=== PATIENT | male | born 1980 | race Caucasian/White ===

== ENCOUNTER 2019-08-16 11:41 | Inpatient (IN) | payer MEDICAID ==
[~2019-08-16] VITALS: Ht 170.2 cm; Wt 89.6 kg
--- NOTE | 2019-08-16 13:56 | NUR ---
REPORT TO NEMESIO JUAREZ FOR BREAK COVERAGE
[2019-08-16 14:59] LABS: BASOPHIL % 0.3 % (0-2); RED CELL DISTRIBUTION WIDTH 13.4 % (11.5-14.5)
[2019-08-16 15:20] LABS: CALCIUM 7.7 mg/dL (8.5-10.1); CARBON DIOXIDE 22.6 mmol/L (21-32); TOTAL PROTEIN, SERUM 8.2 g/dL (6.4-8.2)
--- NOTE | 2019-08-16 15:25 | NUR ---
RESTING QUIETLY AT THIS TIME. DENIES COMPLAINTS. WILL CONTINUE FOR CHANGES
[2019-08-16 15:29] LABS: ALBUMIN 2.2 g/dL (3.4-5.0); PLATELET COUNT 96 x10^3mcL (130-400)
[2019-08-16 15:30] LABS: CREATININE SERUM 10.2 mg/dL (0.7-1.3)
--- NOTE | 2019-08-16 18:11 | NUR ---
RECEIVED PT FROM ED VIA [facility], CAME IN DUE TO FEVER X2 DAYS. AAOX4. DENIES HEADACHE/DIZZINESS. ABLE TO FOLLOW COMMANDS. NO SOB NOTED, LUNG SOUNDS CTA. O2 SAT=98%, RA. DENIES CHEST PAIN/PRESSURE, SR ON THE MONITOR. DENIES ABDOMINAL DISCOMFORT. VOIDS. DENIES DYSURUIA. IV SITE PATENT AND INTACT. SIDE RAILS UPX2. CALL LIGHT ON REACH. PRIMARY NURSE HAYDEE AT BEDSIDE FOR CONTINUITY OF CARE
[2019-08-16 18:14] LABS: T3 TOTAL 0.48 ng/mL
[2019-08-16 18:15] LABS: MAGNESIUM 2.6 mg/dL (1.8-2.4); PHOSPHOROUS 8.1 mg/dL (2.5-4.9)
[2019-08-16 18:22] VITALS: BP 117/78
[2019-08-16 18:24] VITALS: Ht 170.2 cm; Wt 89.6 kg
[2019-08-16 18:26] LABS: FREE T4 1.23 ng/dL (0.76-1.46); T4(THYROXINE) 8.5 ug/dL (4.7-13.3)
[2019-08-16 18:35] LABS: UA SPECIFIC GRAVITY 1.015 (1.005-1.035); microscopic required? YES; urine erythrocyte 3+ (NEGATIVE)
[2019-08-16 18:48] LABS: AMPHETAMINE QUAL UR NONE DETECTED (See below)
--- NOTE | 2019-08-16 18:53 | NUR ---
PATIENT FAMILY NOW IN ROOM. DR GODINEZ IN TO SPEAK WITH PATIENT AND FAMILY. STATES HE WILL CONSULT NEPHROLOGY FOR PATIENT. PATIENT AND FAMILY AGREE AND VERBALIZE UNDERSTANDING. WILL ENDORSE TO ONCOMING NURSE, CALL LIGHT IN REACH.
--- NOTE | 2019-08-16 19:32 | NUR ---
RECEIVED PT FROM DAY SHIFT RN. PT AAOX4 DENIES REYEZ/DIZZINESS. BREATHING EVEN AND UNLABORED ON RA WITH NO SOB NOTED. TELE #20 NSR HR 74 PER MONITOR. PT DENIES CHEST PAIN/PRESSURE. ABD SOFT/DIST, ACTIVE BOWEL SOUNDS. DENIES ABD PAIN/N/V. IV RH PATENT, INFUSING WELL. NO SIGNS OF ACUTE DISTRESS NOTED. FAMILY AT BEDSIDE. WILL CONTINUE TO MONITOR.
[2019-08-16 19:38] LABS: CHOLESTEROL 213 mg/dL (<200); CHOLESTEROL/HDL RATIO 23.7; HDL CHOLESTEROL 9 mg/dL (40-60); TRIGLYCERIDES 694 mg/dL (<150)
[2019-08-16 19:43] VITALS: BP 120/65
--- NOTE | 2019-08-16 20:26 | NUR ---
PT STEPPED OUT OF UNIT TO CT, ACCOMPANY BY ACCOUNTS RECEIVABLE COORDINATOR. NO DISTTRESS NOTED.
--- NOTE | 2019-08-16 20:44 | NUR ---
PT BACK IN ROOM FROM CT, DENIES ANY PAIN. NO SIGNS OF DISTRESS NOTED.
--- NOTE | 2019-08-17 01:00 | NUR ---
ROUNDS MADE. PT RESTING. BREATHING EVEN AND UNLABORED, ON RA WITH NO SOB NOTED. CALL BUTTON WITHIN REACH. SAFETY PRECAUTIONS IN PLACE. WILL CONTINUE TO MONITOR.
[2019-08-17 04:37] VITALS: BP 116/68
--- NOTE | 2019-08-17 05:22 | NUR ---
PT SLEPT ON AND OFF THROUGHOUT THE NIGHT WITH NO SIGNS OF DISTRESS NOTED. IV PATENT, INFUSING WELL WITH NO SIGNS OF INFILTRATION. PT AMBULATORY WITH BRP. PT DENIES ANY PAIN. NO SIGNS OF ACUTE DISTRESS NOTED. CALL BUTTON WITHIN REACH. SAFETY PRECAUTIONS IN PLACE. WILL CONTINUE TO MONITOTR AND ENDORSE CARE TO DAY SHIFT RN, ALL QUESTIONS ADDRESSED.
[2019-08-17 06:38] LABS: CALCIUM 6.8 mg/dL (8.5-10.1); CARBON DIOXIDE 16.6 mmol/L (21-32); MAGNESIUM 2.4 mg/dL (1.8-2.4); PHOSPHOROUS 8.6 mg/dL (2.5-4.9); POTASSIUM SERUM 3.4 mmol/L (3.5-5.1)
[2019-08-17 06:52] LABS: CREATININE SERUM 10.7 mg/dL (0.7-1.3)
[2019-08-17 07:04] LABS: BASOPHIL % 0.1 % (0-2); RED CELL DISTRIBUTION WIDTH 13.5 % (11.5-14.5)
[2019-08-17 07:29] LABS: PLATELET COUNT 91 x10^3mcL (130-400)
--- NOTE | 2019-08-17 07:40 | NUR ---
US AT BEDSIDE. PT DENIES ANY PAIN. NO SIGNS OF DISTRESS NOTED. ENDORSED CARE TO DAY SHIFT RN, ALL QUESTIONS ADDRESSED.
--- NOTE | 2019-08-17 07:54 | NUR ---
RECEIVED PATIENT FROM NEMESIO WOO. PATIENT CURRENTLY HAVING US TAKEN. NO COMPLAINTS AT THIS TIME. SPOKE WITH PATIENT ABOUT PLAN OF CARE TODAY AND WILL WAIT FOR DR GODINEZ TO COME SPEAK WITH PATIENT. DR JOSÉ ARRIVED LAST NIGHT TO SPEAK WITH PATIENT WELL. CALL LIGHT IN REACH AT THIS TIME.
[2019-08-17 08:31] VITALS: BP 127/81
--- NOTE | 2019-08-17 10:06 | NUR ---
DR COOPER AND DR GODINEZ IN TO SPEAK WITH PATIENT. STATES THAT THEY WILL STILL NEED NEPHROLOGY TO COME EVAL PATIENT. DR JOSÉ ALREADY IN LAST NIGHT AT 2300. EXPLAINED TO FAMILY AND ABOUT PLAN OF CARE. ALL QUESTIONS ADDRESSED AT THIS TIME. CALL LIGHT IN REACH.
[2019-08-17 12:42] VITALS: BP 119/79
[2019-08-17 16:26] VITALS: BP 122/80
--- NOTE | 2019-08-17 17:06 | NUR ---
PATIENT IN BED AT THIS TIME, WATCHING TELEVISION. NO COMPLAINTS AT THIS TIME. WILL CONTINUE IV HYDRATION AND MONITOR FOR ABDOMINAL AND FLANK PAIN. CALL LIGHT IN REACH.
--- NOTE | 2019-08-17 19:08 | NUR ---
PATIENT SEATED IN BED, WATCHING TV. NO COMPLAINTS AT THIS TIME. ENDORSED TO NEMESIO WOO AND UPDATED TO TODAYS EVENTS. CALL LIGHT IN REACH.
--- NOTE | 2019-08-17 19:30 | NUR ---
RECEIVED PT FROM DAY SHIFT RN. PT AAOX4 DENIES REYEZ/DIZZINESS. BREATHING EVEN AND UNLABORED ON RA WITH NO SOB NOTED. TELE #20 NSR, PER MONITOR. PT DENIES CHEST PAIN/PRESSURE. ABD SOFT/DIST, ACTIVE BOWEL SOUNDS. DENIES ABD PAIN/N/V. IV RH PATENT, INFUSING WELL. NO SIGNS OF ACUTE DISTRESS NOTED. WILL CONTINUE TO MONITOR.
[2019-08-17 20:43] VITALS: BP 115/76
--- NOTE | 2019-08-18 02:14 | NUR ---
PT RESTING. BREATHING EVEN AND UNLABORED ON RA WITH NO SOB NOTED. IV PATENT, INFSUING WELL. NO SIGNS OF DISTRESS NOTED. CALL BUTTON WITHIN REACH. WILL CONTINUE TO MONITOR.
[2019-08-18 05:40] VITALS: BP 115/77
[2019-08-18 07:04] LABS: BASOPHIL % 0.1 % (0-2); RED CELL DISTRIBUTION WIDTH 13.3 % (11.5-14.5)
[2019-08-18 07:19] LABS: CALCIUM 6.7 mg/dL (8.5-10.1); CARBON DIOXIDE 14.4 mmol/L (21-32); MAGNESIUM 2.3 mg/dL (1.8-2.4); PHOSPHOROUS 8.6 mg/dL (2.5-4.9); POTASSIUM SERUM 3.7 mmol/L (3.5-5.1)
[2019-08-18 07:30] LABS: PLATELET COUNT 96 x10^3mcL (130-400)
[2019-08-18 07:34] LABS: CREATININE SERUM 10.4 mg/dL (0.7-1.3)
--- NOTE | 2019-08-18 07:55 | NUR ---
PT SLEPT MOST OF THE NIGHT WITH NO SIGNS OF DISTRESS NOTED. IV PATENT, INFUSING WELL. PT AMB WITH BRP. PT DENIES ANY PAIN. CALL BUTTON WITHIN REACH. ENDORSED CARE TO DAY SHIFT RN, ALL QUESTIONS ADDRESSED.
--- NOTE | 2019-08-18 08:00 | NUR ---
REEIVED PATIENT A/A/OX4; JAPANESE SPEECH. TELE#20; SR; HR = 84. DENIED ANY PAIN NOW. NO RESP DISTRESS ON RA. C/O POOR APPETITE. ABD ROUND/SOFT. HAD BM THIS AM. NO N/V. IVHL'D PER ORDER. NO EDEMA NOTED. CALL LIGHT IN REACH.
[2019-08-18 08:37] VITALS: BP 122/79
[2019-08-18 12:26] VITALS: BP 134/84
--- NOTE | 2019-08-18 12:42 | NUR ---
DR. NGUYEN CAME TO SEE PATIENT.
--- NOTE | 2019-08-18 13:15 | NUR ---
PPD SKIN TEST TO LEFT FOREARM.
--- NOTE | 2019-08-18 15:00 | NUR ---
WENT TO OR.
[2019-08-18 18:00] VITALS: BP 120/80
--- NOTE | 2019-08-18 18:05 | NUR ---
RECEIVED PATIENT FROM OR AFTER TUNNELED CATH PLACEMENT TO [facility]. PATIENT A/A/OX4; DENIED PAIN. SUTURE W/ BIO-PAD AND TRANSPARENT DRSG TO RT CHEST WALL INTACT. V/S = 97.2-80-17-120/80; O2 SAT 97% ON RA. AT BED SIDE.
--- NOTE | 2019-08-18 19:00 | NUR ---
HEMODIALYSIS CONSENT SIGNED.
--- NOTE | 2019-08-18 19:30 | NUR ---
RECEIVED PT RESTING IN BED, NO ACUTE DISTRESS NOTED. PT S/P TUNNELED CATH INSERTION FOR HD TO THE RT UPPER CHEST, DSG CDI. AOX4, DENIES REYEZ/DIZZINESS. TELE #20 SR W/ PEAKED T WAVE, DENIES CP. PULSES PALPABLE BILAT, DENEIS NUMBNESS/TINGLING IN FEET. RESP EVEN AND UNLABORED ON RA, DENIES SOB. ABD SOFT, ROUND, DENIES ABD PAIN. PT VOIDS FREELY, DENIES DYSURIA. AMBULATORY. SKIN INTACT OTHER THAN NEW TUNELED CATH TO RT UPPER CHEST, NO REDNESS, SWELLING OR PAIN NOTED. IV SITE TO THE RT HAND, SALINE LOCKED AT THIS TIME, ALL COMFORT AND SAFETY MEASURES PROVIDED FOR, CALL LIGTH WITHIN REACH, BED IN LOWEST POSITION, WILL CONTINUE TO MONITOR.
[2019-08-18 21:32] VITALS: BP 120/79
--- NOTE | 2019-08-18 23:45 | NUR ---
HD NURSE FINISHED WITH DIALYSIS, NO FLUID REMOVED, ONLY BALANCING OF ELECTROLYTES. PT TOLERATED HD WELL, DSG TO RT UPPER TUNNELED CATH REMAINS PATENT, NO REDNESS, SWELLING OR PAIN NOTED. PT RESTING WITH EYES CLOSED, CALL LIGHT WITHIN REACH, BED IN LOWEST POSITION, WILL CONTINUE TO MONITOR.
--- NOTE | 2019-08-19 05:05 | NUR ---
PT RESTED IN INTERVALS DURING SHIFT, NO ACUTE CHANGES OCCURRING OVERNIGHT. PT BLOOD SUGAR REMAINS STABLE OVERNIGHT, NO INSULIN COVERAGE NEEDED. PT TOLERATED FIRST HD WELL, NO FLUID REMOVED, ONLY BALANCE OF ELECTROLYTES. DSG TO RT UPPER CHEST TUNNELED CATH REMAINS CDI, NO REDNESS, SWELLING OR PAIN NOTED. PT TOLERATING ANTIBIOTICS WELL. ALL COMFORT AND SAFETY MEASURES PROVIDED FOR, CALL LIGHT WITHIN REACH, BED IN LOWEST POSITION, WILL CONTINUE TO MONITOR.
[2019-08-19 06:06] VITALS: BP 128/81
[2019-08-19 06:52] LABS: RED CELL DISTRIBUTION WIDTH 13.3 % (11.5-14.5)
[2019-08-19 07:05] LABS: CALCIUM 7.6 mg/dL (8.5-10.1); CARBON DIOXIDE 21.3 mmol/L (21-32); PHOSPHOROUS 6.4 mg/dL (2.5-4.9)
[2019-08-19 07:12] LABS: CREATININE SERUM 7.4 mg/dL (0.7-1.3)
--- NOTE | 2019-08-19 07:20 | NUR ---
RECEIVED PT. IN BED A/A/O X3. NO SOB, NO N/V NOTED. PT. DENIES ANY PAIN AT THIS TIME. IV SITE NOTED TO R HAND. TUNNELED HEMODIALYSIS CATH. NOTED TO R CHEST. BED IN LOW POS., CALL LIGHT WITHIN REACH. SIDE RAILS UP X3.
[2019-08-19 07:29] LABS: BASOPHIL % 0 % (0-2); PLATELET COUNT 122 x10^3mcL (130-400)
[2019-08-19 09:00] VITALS: BP 105/64
[2019-08-19 09:35] LABS: POTASSIUM SERUM 2.9 mmol/L (3.5-5.1)
[2019-08-19 10:10] LABS: COMPLEMENT C3 123 mg/dL (82-167); COMPLEMENT C4 38 mg/dL (14-44)
[2019-08-19 11:45] VITALS: BP 110/75
--- NOTE | 2019-08-19 13:36 | NUR ---
HEMODIALYSIS NURSE AT BEDSIDE TO PREPARE PT. FOR HEMODIALYSIS.
[2019-08-19 16:28] VITALS: BP 134/84
--- NOTE | 2019-08-19 17:00 | NUR ---
HEMODIALYSIS COMPLETED PER HD NURSE. NO FLUID REMOVED PER HD NURSE.
--- NOTE | 2019-08-19 17:12 | NUR ---
CALLED AND REPORTED URINE CULTURE RESULTS TO THE NURSE PRACTITIONER MARILU MAC. MARILU WAS MADE AWARE THAT PT.'S URINE CULTURE SHOWS E. COLI MDRO IN URINE. NO FURTHER ORDER RECEIVED AT THIS TIME. PT. IS PLACED ON CONTACT ISOLATION.
--- NOTE | 2019-08-19 19:25 | NUR ---
RECEIVED PT IN BED AWAKE, ALERT,ORIENTED X4. PT'S AT BEDSIDE. PT HAS NO SOB ON ROOM AIR. HE HAS NO C/O PAIN AT THIS TIME. W/ HL TO RT HAND INTACT. HD CATH TO RT CHEST INTACT. CALL LIGHT W/IN REACH.
[2019-08-19 20:51] VITALS: BP 131/84
--- NOTE | 2019-08-20 02:00 | NUR ---
PT APPEARS TO BE SLEEPING COMFORTABLY. NO S/S OF DISTRESS.
--- NOTE | 2019-08-20 05:19 | NUR ---
PT SLEPT THROUGH THE NIGHT. HE HAD NO C/O PAIN. NO SOB. PT VOIDING WELL. ALL NEEDS ATTENDED TO. DUE MEDS GIVEN. CONTACT ISOLATION MAINTAINED.
[2019-08-20 05:56] VITALS: BP 137/71
[2019-08-20 06:50] LABS: BASOPHIL % 0.2 % (0-2); PLATELET COUNT 187 x10^3mcL (130-400); RED CELL DISTRIBUTION WIDTH 13.4 % (11.5-14.5)
--- NOTE | 2019-08-20 07:10 | NUR ---
SEEN AOX4, NOT IN DISTRESS, TELE 20 NSR, PALPABLE PUSLSES, NO EDEMA, REGULAR RATE AND RHYTHM, S1 AND S2 HEARD, CTA ON BLF, NORMOACTIVE BS, LAST BM 08/20/19, VOID WITH NO DYSURIA, HD CATH AT R CHEST , NO WEAKNESS, AMBULATORY, SKIN DRY AND INTACT, NO PAIN AT THIS TIME, IV INFUSING AT KVO TO RH. NO REDNESS OR INFILTRATION. CALL LIGHT WITHIN REACH. BED AT LOWEST POSITION.
[2019-08-20 07:17] VITALS: BP 124/85
[2019-08-20 07:30] LABS: CALCIUM 8.3 mg/dL (8.5-10.1); PHOSPHOROUS 5.1 mg/dL (2.5-4.9); POTASSIUM SERUM 3.6 mmol/L (3.5-5.1)
[2019-08-20 07:36] LABS: CREATININE SERUM 4.8 mg/dL (0.7-1.3)
--- NOTE | 2019-08-20 08:57 | NUR ---
SEEN AOX4,NOT IN DISTRESS, PO MEDICATIONS GIVEN. MG 1.7. MGSO4 IVPB INFUSING WELL AT 25CC/HR AT RH. CALL LIGHT WITHIN REACH. BED AT LOWEST POSITION.
--- NOTE | 2019-08-20 11:34 | NUR ---
SEEN AOX4, NOT IN DISTRESS, NO ABD PAIN, NO N/V, NO DIZZINESS, NO WEAKNESS, ACCUCHECK DONE WITH CBG 132, NO INSULIN REQUIRED, PATIENT'S PHOSPHORUS 5.1. PHOSLO PO GIVEN. CALL LIGHT WITHIN REACH. BED AT LOWEST POSITION.
[2019-08-20 11:36] VITALS: BP 135/89
--- NOTE | 2019-08-20 11:49 | NUR ---
Initial Nutrition Assessment: 208T/B ADEBAYO JOL[place] IA HR Dx: acute renal failure, hypokalemia PMHx: pt denied PSHx: pt denied Labs: BG 118H, BUN 55H, CREAT 4.8H, P 5.1H, TG 694H, CHOL 213, MG 1.7L, WBC 13.3H Meds: Ambien, Colace, D 50%, Humulin, phoslo, protonix, zofran Diet: clear liquid PO intake since admission: (08/19) 100% all meals, (08/17) 100% all meals Ht: 170.18 cm (67") Wt: 89.6 kg (197#) BMI: 30.9 kg/m2 Bed scale: 197# IBW: 148# (67 kg) %IBW: 133 UBW: 197# Age: 38/M Food Allergies: NKFA Skin: dry and intact Mario: 20 Edema: none GI: Last BM: 08/19 Per H&P, Pt is a 38yoM with no significant PMH who presented to the ED c/o gradual-onset abdominal pain that radiates to bilateral flanks x3 days. RD Note (08/20): Patient was alert and oriented with at bedside. Patient is only Mongolian speaking but speaks Polish. Patient said he drank almost all of his liquid diet that he received for breakfast this morning and denies any N/V/D/C at this time. FNS received consult for 'malnutrition on 08/18. Per progress note (08/19), pt was scheduled for HD yesterday. Problem with: N/V/D/C: none Problems with: Chewing: Swallowing: none Current appetite: good Recent wt change: none %wt change: n/a Vitamin/Supplement use: none Special diet at home: Regular Physical activity: walking Nutrition education given: PO was encouraged Food-drug interactions: none Education given: n/a Estimated Nutritional Needs Based on adjusted body weight (73 kg) Energy: 8025-8936 kcal/day (25-30 kcal/kg for maintenance) Protein: 58-73 g/day (0.8-1.0 g/kg for acute renal failure) Fluid: 9136-6512 mL/day (1 mL/kcal) Nutrition Diagnosis: 1. Altered nutrition related lab values related to acute renal failure as evidenced by BUN 55H, CREAT4.8H Intervention 1. Recommend progressing to Renal full liquid diet when medically appropriate/ tolerated. Monitor/Evaluate Goal: PO intake at least 75% of estimated needs Monitor: PO intake, Labs, GI function F/U in 3-5 days as moderate risk 08/23-
--- NOTE | 2019-08-20 11:49 | NUR ---
1. Recommend progressing to Renal full liquid diet when medically appropriate/ tolerated.
--- NOTE | 2019-08-20 13:43 | NUR ---
CALLED AND SPOKE TO FLY(HD NURSE) AND SCHEDULED PT FOR HD TODAY PER DR.MINNA ANSARI'S ORDER. MARY HERR ASSIGNED TO THIS PT MADE AWARE OF ABOVE.
--- NOTE | 2019-08-20 16:37 | NUR ---
SEEN AOX4, NOT IN DISTRESS, NO SUBJECTIVE COMPLAINTS OF PAIN. PHOSLO GIVEN . CALL LIGHT WITHIN REACH. BED AT LOWEST POSITION.
[2019-08-20 16:43] VITALS: BP 131/87
--- NOTE | 2019-08-20 17:24 | NUR ---
SEEN PATIENT AOX4, NOT IN DISTRESS, NO ABDOMINAL PAIN , NO FLANK PAIN , ABLE TO VOID WITH NO DYSURIA, NO HEMATURIA, NO PYURIA, LAST BM 08/20/19, IV INTACT AND PATENT, NO REDNESS OR INFILTRATION. CALL LIGHT WITHIN REACH. BED AT LOWEST POSITION.
--- NOTE | 2019-08-20 19:05 | NUR ---
RECEIVED PT AWAKE ALERT AND VERBALLY RESPONSIVE IN [place].DENIES CHESTPAIN AT THIS TIME.BP 148/89 MMHG,HR 71.ONGOING DIALYSIS AT THIS TIME.WILL CONTINUE TO MONITOR.
--- NOTE | 2019-08-21 04:39 | NUR ---
PT SLEPT WELL ALL NIGHT.NO ASE NOTED FROM ROCEPHIN IV ATB.VOIDED TO 950 ML YELLOW COLORED URINE.ON CONTACT ISOALTION FOR MDRO E COLI URINE.GOODHANDWASHING TECHNIQUE OBSERVED.WILL CONTINUE TO MONITOR.
[2019-08-21 05:37] VITALS: BP 125/82
[2019-08-21 06:47] LABS: BASOPHIL % 0.1 % (0-2); PLATELET COUNT 227 x10^3mcL (130-400); RED CELL DISTRIBUTION WIDTH 13.4 % (11.5-14.5)
[2019-08-21 07:10] LABS: CALCIUM 8.1 mg/dL (8.5-10.1); CARBON DIOXIDE 28.9 mmol/L (21-32); CREATININE SERUM 3.1 mg/dL (0.7-1.3); POTASSIUM SERUM 3.4 mmol/L (3.5-5.1)
--- NOTE | 2019-08-21 07:45 | NUR ---
SEEN AOX4, NOT IN DISTRESS, NO SUBJECTIVE COMPLAINTS OF PAIN, TELE 19 , NSR , CTA ON BLF, REGULAR RATE AND RHYTHM, S1 AND S2 HEARD, PALPABLE PULSES, NO EDEMA, + BS, VOIDS WITH NO DYSURIA, NO WEAKNESS, SKIN INTACT, IV INTACT AND PATENT, SL TO [place] PICC LINE. CALL LIGHT WITHIN REACH. BED AT LOWEST POSITION.
--- NOTE | 2019-08-21 08:19 | NUR ---
TOOL SALVAGE WORKER MARILU SEEN PATIENT. QUESTIONS ADDRESSED. PO MEDICATIONS GIVEN PRESCRIBED. IV CHECKED FOR PATENCY AND PROTONIX IVP GIVEN . IV FLUSHED WITH NS. CALL LIGHT WITHIN REACH. BED AT LOWEST POSITION.
[2019-08-21 08:44] VITALS: BP 125/84
--- NOTE | 2019-08-21 09:09 | NUR ---
K 3.4. KLOR CON 40MEQ GIVEN PO. MG 1.7. MAGNESIUM OXIDE 400MG GIVEN PO.
--- NOTE | 2019-08-21 09:24 | NUR ---
CONTACTED FLY KELLER. PATIENT SCHEDULED FOR HD 08/22/19 . FLY KELLER MADE AWARE AND CONFIRMED TOMORROW'S SCHEDULE.
--- NOTE | 2019-08-21 11:11 | NUR ---
SEEN AOX4, NOT IN DISTRESS, NO SUBJECTIVE COMPLAINTS, ACCUCHECK DONE WITH CBG OF 129. NO INSULIN REQUIRED. PHOSLO PO GIVEN . CALL LIGHT WITHIN REACH. BED AT LOWEST POSITION
[2019-08-21 13:40] VITALS: BP 115/75
[2019-08-21 16:56] VITALS: BP 119/70
--- NOTE | 2019-08-21 17:05 | NUR ---
PATIENT HAS NO SUBJECTIVE COMPLAINTS OF PAIN. NO N/V, NO WEAKNESS. CALL LIGHT WITHIN REACH. BED AT LOWEST POSITION.
[2019-08-21 19:05] VITALS: BP 121/79
--- NOTE | 2019-08-21 19:05 | NUR ---
RECEIVED PT AWAKE ALERT AND VERBALLY RESPONSIVE IN [place].DENIES CHESTPAIN AT THIS TIME.BP 121/79 MMHG,HR 70.TUNNELED CATH TO R CHEST WITH DRESSING CDI.DENIES ABDOMINAL PAIN.NO N/V NOTED.ON CONTACT ISOALTION FOR MDRO E COLI IN URINE.WILL OBSERVE GOODHANDWASHING TECHNIQUE.WILL CONTINUE TO MONITOR.
--- NOTE | 2019-08-22 04:36 | NUR ---
PT SLEPT WELL ALL NIGHT.NO ASE NOTED FROM ROCEPHIN IV ATB.DENIES ABDOMINAL PAIN.TOLERATED CLEAR LIQUID DIET.REMAINS ON CONTACT ISOALTION FOR MDRO E COLI URINE.GOODHANDWASHING TECHNIQUE OBSERVED.ALL NEEDS MET.WILL CONTINUE TO MONITOR.
[2019-08-22 05:47] VITALS: BP 128/86
[2019-08-22 06:42] LABS: CALCIUM 8.4 mg/dL (8.5-10.1); CARBON DIOXIDE 26.7 mmol/L (21-32); CREATININE SERUM 3.1 mg/dL (0.7-1.3); POTASSIUM SERUM 3.8 mmol/L (3.5-5.1)
[2019-08-22 06:49] LABS: BASOPHIL % 0.3 % (0-2); PLATELET COUNT 286 x10^3mcL (130-400); RED CELL DISTRIBUTION WIDTH 13.2 % (11.5-14.5)
--- NOTE | 2019-08-22 08:00 | NUR ---
RECEIVED PATIENT ALERT AND ORIENTED TIMES FOUR. PATIENT WITH TUNNEL CATH IN PLACE AND PATIENT AND BEEN ON ROCEPHIN AND NO ADVERSE REACTION NOTED. PATIENT HAS BEEN WITH VITALS AT THIS TIME AT 97.4,73, 20, 128/86, 100% ON ROOMAIR. PATIENTIS BASICALLY WAITING FOR A DIALYSIS CHAIR FOR PATIENT TO BE DISCHARGED. HE IS FOR DIALYSIS TODAY AND NOTED LABS ARE THE BUN AT 25.0, CREATININE AT 3.1,AND THE WBC AT 13.5 ANDNOTED PATIENT HAS UTI. PATIENT HAS NOTED TO HAVE ECOLI MDRO OF THE URINE. PATIENT NO PREVIOUS HISTORY BEFORE COMING TO [place] AND HAS A NEED FOR DIABETIC MONITORING AND HAS BEEN NOTED TO HAVE DIVERTICULOSIS AND A SMALL HERNIA TO THE UMBILICAL AREA WELL. PATIENT HAS BEEN SEEN BY SEVERAL DOCTORS INCLUDING DR ANSARI FOR NEPHROLOGY. HE DENIES PAIN AND HAS BEEN AMBUALTORY AND STILL HAS A URINE OUTPUT THAT IS ADEQUATE AT THIS TIME.
[2019-08-22 08:27] VITALS: BP 118/78
[2019-08-22] MEDS ORDERED: CIPRO500 MG PO (08:55)
[2019-08-22] MEDS ORDERED: COL100 PO (08:56)
[2019-08-22] MEDS ORDERED: PHOS PO (08:56)
--- NOTE | 2019-08-22 10:25 | NUR ---
PATIENT IS FOR DIALYSIS AND DIALYSIS NURSE AT BEDSIDE.
--- NOTE | 2019-08-22 12:17 | NUR ---
BLOOD SUGAR AT 125 AND NO COVERAGE INDICATED. PATIENTA HAS BEEN ON DIALYSIS AND TOLERATED WELL THE CAME IN AND WANTS TO LEAVE [facility] SHE WORKS TODAY. ADVISED BY THE HE WILL NOT HAVE A RIDE IF HE IS NOT DISCHARGED IN TIME.
[2019-08-22 12:44] VITALS: BP 115/75
[2019-08-22 12:47] VITALS: BP 115/75
[2019-08-22 16:27] VITALS: BP 113/74
--- NOTE | 2019-08-22 16:43 | NUR ---
GAVE ALL PAPERWORK POST THE DIALYSIS AND NO FLUIDS REMOVED AT THIS TIME. IV AND TELE REMOVED INDICATED AND PATIENT WAS ADVISED OF PLAN OF CARE ANDAWAITING OF SOME DIETARY RESTRICTIONS AND NOT TO GET THE CATH WET. HE HAS BEEN ANXIOUS TO GO HOME. WENT TO WORK AND AWAITING HIGH HEEL BUILDER FOR HOME BY BROTHER AT THIS TIME.PATIENT HAS PRESCRIPTIONS CALLED IN TO [facility] [address].
== END 2019-08-22 21:19 | disposition home or self-care (01) | DRG 249 ==
LOC: ED 11:41 → DU 17:14
PROVIDERS: Emergency Medicine; Internal Medicine Nephrology; Surgery; ADMIT Internal Medicine
PROC: 5A1D70Z Performance of Urinary Filtration, Intermittent, Less than 6 Hours Per Day (ICD-10-PCS; 2019-08-18)
PROC: 05HM33Z Insertion of Infusion Device into Right Internal Jugular Vein, Percutaneous Approach (ICD-10-PCS; principal; 2019-08-18 16:00)
PROC: 5A1D70Z Performance of Urinary Filtration, Intermittent, Less than 6 Hours Per Day (ICD-10-PCS; 2019-08-19)
PROC: 5A1D70Z Performance of Urinary Filtration, Intermittent, Less than 6 Hours Per Day (ICD-10-PCS; 2019-08-20)
PROC: 5A1D70Z Performance of Urinary Filtration, Intermittent, Less than 6 Hours Per Day (ICD-10-PCS; 2019-08-22)
DX: E86.1 Hypovolemia (principal); K52.9 Noninfective gastroenteritis and colitis, unspecified; N17.0 Acute kidney failure with tubular necrosis; E43 Unspecified severe protein-calorie malnutrition; E87.1 Hypo-osmolality and hyponatremia; E11.65 Type 2 diabetes mellitus with hyperglycemia; N39.0 Urinary tract infection, site not specified; B96.20 Unspecified Escherichia coli [E. coli] as the cause of diseases classified elsewhere; R31.9 Hematuria, unspecified; E87.6 Hypokalemia; E83.51 Hypocalcemia; K57.30 Diverticulosis of large intestine without perforation or abscess without bleeding; K42.9 Umbilical hernia without obstruction or gangrene; E66.9 Obesity, unspecified; Z68.31 Body mass index [BMI] 31.0-31.9, adult; Z16.24 Resistance to multiple antibiotics; Z83.3 Family history of diabetes mellitus; Z84.1 Family history of disorders of kidney and ureter; Z80.3 Family history of malignant neoplasm of breast
CPT/HCPCS: 82962; 84439; 86580; 90658; 94150; A4301; C9113; G0378; J0696; J1644; J1885; J2001; J2250; J2704; J3010; J3475; J3480; J7030; J7060; Q0092